=== PATIENT | female | born 1990 | race Hispanic/Latino ===

== ENCOUNTER 2017-11-13 11:25 | Inpatient (IN) | payer OTHER, SELFPAY ==
[2017-11-13] MEDS ORDERED: Ringers Lactate 1,000 ML IV PRN (13:16)
[2017-11-13] MEDS ORDERED: CARBOPROST TROME 250 MCG/ML IM PRN ×2 (13:16→15:40)
[2017-11-13] MEDS ORDERED: BUTORPHANOL 1 MG/ML INJ IV PRN (13:16)
[2017-11-13] MEDS ORDERED: PROMETHAZINE 25 MG/ML VIAL IV PRN (13:16)
[2017-11-13] MEDS ORDERED: METHYLERGONOVINE 0.2MG/ML AMP IM PRN ×2 (13:16→15:40)
--- NOTE | 2017-11-13 13:20 | RAD REPORT ---
EXAM DESCRIPTION: US - OB Complete - 11/13/2017 12:41 pm CLINICAL HISTORY: Labor, no care Preliminary findings provided at the time of the study. COMPARISON: None. FINDINGS: A single cephalic presenting gestation is identified. The 4 chamber heart view has a jeffery l appearance. Heart rate normal on cine loop imaging. The patient was on a heart monitor at the time of the examination. The intracranial contents and spine are grossly normal. A left-sided stomach bubble is seen with grossly normal appearing bladder and kidneys. The 3 vessel cord, insert ion site and anterior abdominal wall have normal appearance. Exam is considered limited due to late third trimester age, positioning and the volume of amniotic fluid remaining. measurements are as follows: BPD:8.64 Centimeters 34 weeks 6 days HC:31.88 Centimeters 35 weeks 6 days AC:32.77 Centimeters 36 weeks 5 days HL:5.68 Centimeters 33 weeks 0 days FL:6.90 Centimeters 35 weeks 3 days The estimated gestational age (EGA) is 35 weeks 1 day with an ART of 12/17/2017. ratios are no rmal or within acceptable limits. The placenta is grade I, anterior left lateral in location. No low- lying or placenta previa. GUILLERMO is 6.0 cm. Single largest pocket is 2.30 cm. Estimated weight is 2841 g luis eduardo. Maternal adnexa obscured. IMPRESSION: 1. Single, cephalic gestation with an EGA of 35 weeks 1 day and an ART of the 12/17/2017 . 2. No gross anatomic abnormality seen. Assessment is limited by late age, position and relative ly low amniotic fluid volume ratios are normal or within acceptable limits. 3. Grade I, anterior left lateral placenta with no low-lying or placenta previa. 4. GUILLERMO is 6.0 cm with single largest pocket 2.30 cm. 5. Estimated weight is 2841 grams.
[2017-11-13] MEDS ORDERED: LIDOCAINE 2% INJ, 20 mL 20 ML ONE (13:28)
[2017-11-13] MEDS ORDERED: Ringers Lactate 1,000 ML IV ONE (13:28)
[2017-11-13] MEDS ORDERED: OXYTOCIN/LR 20 UNIT/1,000 ML BAG IV ONE (13:28)
[2017-11-13] MEDS ORDERED: LIDOCAINE 2% 20 ML MDV IV ONE (13:36)
[2017-11-13 13:43] LABS: RPR Titer ND
[2017-11-13 13:50] LABS: Absolute Lymphocytes (CBC) 1.3 K/uL (0.7-4.9); Absolute Monocytes 0.5 K/uL (0.1-1.3); Absolute Neutrophil 3.4 K/uL (1.8-8.0); Basophils % 0.2 % (0-1.3); Eosinophils % 0.5 % (0-4.4); Hematocrit 31.3 % (36.0-45.0); Lymphocytes % 24.6 % (15.3-44.8); MCH 27.1 pg (27.0-35.0); MCV 82.8 fL (80-100); MPV 9.5 fL (7.6-11.3); Monocytes % 10.1 % (3.3-12.3); RBC Red Blood Cell Count 3.79 M/uL (3.86-4.86)
[2017-11-13 13:57] LABS: Glucose Level 78 mg/dL (74-106)
[2017-11-13 13:59] LABS: Barbiturates NEGATIVE (NEGATIVE); Benzodiazepines NEGATIVE (NEGATIVE); Cocaine NEGATIVE (NEGATIVE); METHAMPHETAM NEGATIVE (NEGATIVE); Methadone NEGATIVE (NEGATIVE); Opiates NEGATIVE (NEGATIVE); Phencyclidine NEGATIVE (NEGATIVE); THC Cannibis NEGATIVE (NEGATIVE)
[2017-11-13] MEDS ORDERED: OXYTOCIN/LR 20 UNIT/1,000 ML BAG IV SCH ×2 (14:00→16:00)
[2017-11-13] MEDS ORDERED: BUPIVACAINE 0.25% PF 10 ML VIAL SQ PRN (14:28)
[2017-11-13] MEDS ORDERED: FENTANYL/BUPIVACAINE/NS/PF 200 MCG/100 ML BAG EP PRN (14:32)
[2017-11-13] MEDS ORDERED: BUPIVACAINE 0.25% PF 10 ML VIAL ONE (14:43)
[2017-11-13] MEDS ORDERED: METHYLERGONOVINE 0.2 MG TAB PO PRN (15:40)
--- NOTE | 2017-11-13 15:44 | P.BOP ---
Preoperative diagnosis: Term , delivered, anemia, no care Postoperative diagnosis: viable female infant Primary procedure: SCVD viable Secondary procedure: Repair right labial lacerationsx2 Estimated blood loss: Less than 300ml Anesthesia: Local Complications: None Transferred to: Other (273) Condition: Good
[2017-11-13] MEDS: IBUPROFEN 200 MG TAB PO PRN (16:55)
[2017-11-13 17:36] VITALS: BMI 24.2
--- NOTE | 2017-11-13 17:59 | PREOPHP ---
Date of Admission: 11/13/2017 History Of Present Illness: Ms. Reyes is a 27-year-old black female, 5, para 3-1-0-4, unknow n gestational age with no care, who started anni this early a.m., approximately 2 a.m ., presents to Labor and Delivery for evaluation, noted to be approximately 3+ cm. Over the next irene rs, she progressed to 5 cm and is admitted for delivery. Past Medical History: Includes 3 prior vaginal deliveries, 1 prior section secondary to pre term , and she had one of her vaginal delivery subsequent to that, and her last delivery was at term. All of her infants were approximately 6+ pounds, other than extremely infant. She hough s no other hospitalizations, accidents, illnesses, injuries other than cholecystectomy. She is on no medications on a regular basis. Has not been taking any iron, vitamins, or other medicatio ns during this . Allergies: SHE LISTS NO KNOWN ALLERGIES. Family History: Noncontributory. Review of Systems: She reports no recent cough, cold, fever, or chills. No recent nausea, vomiting. She denies any delia ast lumps. Infant has been active. She denies significant vaginal bleeding or spotting. She has no history of herpes or recurring bouts of diarrhea or constipation. Physical Examination: General: Reveals a black female, in mild discomfort. Neck: Supple without adenopathy or thyromegaly. Lungs: Clear. Cardiac exam: Regular rate and rhythm without murmurs. Breasts: Not examined. Abdomen: Estimated weight approximately 5+ to 6 pounds. Cervix, as above, was noted to change to 5 cm. Extremities: Trace lower extremity edema. Ultrasound was performed showing approximately 35+ week infant consistent with her history of relativ elizabeth small infant, thought to be at term. GUILLERMO was somewhat reduced at 6 cm vertex presentation. No o bvious other gross abnormalities were noted. Impression: Probable term but uncertain gestational age labor. Plan: The patient will be admitted for delivery. We will do type and crossmatch because of a histor y of prior section with subsequent . ALEXANDRA/OLGA Voice ID: [id number]
[2017-11-13] MEDS: ACETAMINOPHEN 500 MG TAB PO PRN (19:20)
[2017-11-14 04:37] LABS: Absolute Lymphocytes (CBC) 1.6 K/uL (0.7-4.9); Absolute Neutrophil 6.8 K/uL (1.8-8.0); Basophils % 0.2 % (0-1.3); Eosinophils % 0.2 % (0-4.4); Hematocrit 29.6 % (36.0-45.0); Lymphocytes % 16.9 % (15.3-44.8); MCH 27.4 pg (27.0-35.0); MCV 82.4 fL (80-100); MPV 9.6 fL (7.6-11.3); Monocytes % 10.8 % (3.3-12.3); RBC Red Blood Cell Count 3.59 M/uL (3.86-4.86)
[2017-11-14] MEDS: IBUPROFEN 200 MG TAB PO PRN (08:00)
--- NOTE | 2017-11-14 17:42 | DN ---
Surgeon: Prabhakar Plasencia MD Delivery Note: Ms. Reyes is a 27-year-old single black female, 5, para 3104, unknown gestational age because she had no care during this . She noticed the onset of contractions and then presents to Labor and Delivery for evaluation. She was noted to be approximately 5 cm on admission. She had her first stage of labor of approximately 7 minutes, second stage of her labor of 3 minutes. She delivered by spontaneous controlled vaginal delivery, a 6 pounds 5 ounce female infant, 9 and 9. She had received 1 single dose of 1 mg of Stadol IV for analgesia. was delivered after delayed cord clamping. The cord was clamped, cut, and the infant placed on mother's upper abdomen. Cord blood was obtained. The placenta was spontaneously expelled and appeared to be intact. Intrauterine exam revealed no retained placental fragments. Patient suffered a first-degree and second-degree right labial laceration, which was repaired with the aid of a local infiltration with xylocaine and simple sutures of 3-0 Vicryl. Estimated total blood loss was less than 300 cc. ALEXANDRA/OLGA Voice ID: [id number] Report ID: [id number] LESTER
[2017-11-14 23:45] LABS: RPR (Rapid Plasma Reagin) NON-REACT (NON-REACT)
[2017-11-15] MEDS: ACETAMINOPHEN 500 MG TAB PO PRN (00:05)
[2017-11-15] MEDS ORDERED: Ringers Lactate 2,000 ML IV ONE (05:20)
--- NOTE | 2017-11-15 06:17 | DS ---
Final Hospital Discharge Diagnosis: Term , delivered. Complications: No care, iron-deficiency anemia. Procedures: Artificial rupture of membranes, spontaneous controlled vaginal delivery of viable femal e , repair of right labial lacerations. Hospital Course: The patient is a 27-year-old black female, 5, para 3-1-0-4, who presents in active labor, unknown gestational age, noted to be 5 cm. She delivered a 6-pound 5-ounce female inf ant, 9 and 9, was dismissed on the first day, ambulatory, on a select diet with rout ine post vaginal delivery activity restrictions. She is to purchase an [id number] iro n and vitamins to take. She had lab work included admission hemoglobin and hematocrit of 10.3 and 31 .3, dismissal 9.8 and 29.6. She is O positive blood type. Admission glucose of 78. Negative urine dip test and RPR is pending as is hepatitis B. Rapid HIV screen is negative. Rubella is also pendin g. She was dismissed to be seen back through [facility] for care and contraceptive consi derations. ALEXANDRA/OLGA Voice ID: [id number] Report ID: [id number]
[2017-11-15 07:19] VITALS: BP 104/67; TEMP 97
[2017-11-15] MEDS ORDERED: Tdap (Diph,Pertuss(Acell),Tet Vac) 0.5 ML SYR IMVAC ONE (10:12)
[2017-11-15 19:21] LABS: HBsAG Nonreactive (Nonreactive)
== END 2017-11-15 10:20 | disposition home or self-care (01) | DRG 775 ==
LOC: L&D 11:25 → 2ND-WC 12:44
PROVIDERS: ADMIT Specialist; ATTEND Specialist
PROC: 0KQM0ZZ Repair Perineum Muscle, Open Approach (ICD-10-PCS; principal; 2017-11-14)
PROC: 10E0XZZ Delivery of Products of Conception, External Approach (ICD-10-PCS; 2017-11-14)
DX: O70.1 Second degree perineal laceration during delivery (principal); Z37.0 Single live birth; O99.02 Anemia complicating childbirth; Z3A.00 Weeks of gestation of pregnancy not specified; Z23 Encounter for immunization
CPT/HCPCS: 36415; 76805; 80307; 82947; 85025; 86592; 86762; 86850; 86900; 86901; 87340; 90715; G0433; J0595; J2210; J2590